=== PATIENT | male | born 1965 | race Caucasian/White ===

== ENCOUNTER 2025-03-26 12:44 | Inpatient (IN) | payer SELFPAY ==
[~2025-03-26] VITALS: Ht 182.9 cm; Wt 131.5 kg
[2025-03-26] MEDS ORDERED: KETOROLAC TROMETHAMINE 30 MG/ML VIAL IV STA (12:51)
[2025-03-26] MEDS ORDERED: ONDANSETRON HCL INJ 2MG/ML 2ML 2 MG/ML VIAL IV STA (12:51)
[2025-03-26] MEDS ORDERED: FENTANYL CITRATE/PF 100MCG/2 ML INJ IV ONE (13:00)
[2025-03-26 13:26] LABS: BASOPHILS % 0.3 % (0.0-1.0); EOSINOPHILS % 2.8 % (0.0-6.0); LYMPHOCYTES % 13.2 % (18.0-39.1); MONOCYTES % 6.0 % (4.4-11.3); NEUTROPHILS % 77.3 % (38.7-80.0); RED CELL DISTRIBUTION WIDTH 12.7 % (11.7-14.4)
[2025-03-26 13:53] LABS: EST GLOMERULAR FILTRATION RATE 90.0 ML/MIN (>=60)
[2025-03-26 14:15] LABS: LEUKOCYTE ESTERASE ,URINE NEGATIVE (NEGATIVE)
[2025-03-26 14:16] LABS: PROTEIN,URINE DIPSTICK 1+ (NEGATIVE); URINE UROBILINOGEN 0.2 mg/dL (0.2 - 1)
[2025-03-26 14:25] LABS: WBC,URINE (MAN) 0-5 /HPF (0-5)
[2025-03-26 14:42] VITALS: PULSE 74; RESP 18; O2SAT 99
[2025-03-26 15:35] VITALS: PULSE 65; RESP 18; TEMP 98.4
[2025-03-26] MEDS ORDERED: CLOPIDOGREL75 MG PO (15:47)
[2025-03-26] MEDS ORDERED: FLUOXETINE HCL20 MG PO (15:47)
[2025-03-26] MEDS ORDERED: ENTRESTO 24 MG1 EACH PO (15:47)
[2025-03-26] MEDS ORDERED: PANTOPRAZOLE SO40 MG PO (15:47)
[2025-03-26] MEDS ORDERED: ZOLPIDEM PO (15:47)
[2025-03-26] MEDS ORDERED: HYDROMORPHONE HC4 MG PO (15:47)
[2025-03-26] MEDS ORDERED: MONTELUKAST SOD10 MG PO (15:47)
[2025-03-26] MEDS ORDERED: ATORVASTATIN CA80 MG PO (15:47)
[2025-03-26] MEDS ORDERED: MELOXICAM15 MG PO (15:47)
[2025-03-26] MEDS ORDERED: FLOMAX0.4 MG PO (15:47)
[2025-03-26] MEDS ORDERED: HYDROCODON-ACE1 EA11 PO (15:47)
[2025-03-26] MEDS ORDERED: ASPIRIN81 MG PO (15:47)
[2025-03-26] MEDS ORDERED: CARVEDILOL25 MG PO (15:47)
[2025-03-26] MEDS ORDERED: OZEMPIC1 MG/0.71 SC (15:48)
[2025-03-26] MEDS: Morphine 4mg INJECTION 4 MG/ML INJ IV PRN (16:07)
[2025-03-26] MEDS: ONDANSETRON HCL INJ 2MG/ML 2ML 2 MG/ML VIAL IV PRN (16:07)
[2025-03-26 16:15] VITALS: BP_SYST 116; BP_SYST 131; BP_DIAS 63; BP_DIAS 75; PULSE 59; PULSE 74; RESP 18; RESP 20; TEMP 98.1; TEMP 98.4; O2SAT 95; O2SAT 97
[2025-03-26 16:16] VITALS: BP 116/75; PULSE 74; RESP 20; TEMP 98.1; O2SAT 97
[2025-03-26] MEDS: SODIUM CHLORIDE 0.9% 1000ML 1,000 ML IV SCH (19:48)
[2025-03-26 20:00] VITALS: BP 98/83; PULSE 59; RESP 18; TEMP 97.5; O2SAT 98
[2025-03-26] MEDS ORDERED: KETOROLAC TROMETHAMINE 30 MG/ML VIAL IV PRN (20:15)
[2025-03-26 21:00] VITALS: BP 98/83; PULSE 59; RESP 18; TEMP 97.5; O2SAT 98
[2025-03-27] VITALS (7 sets, daily range): BP systolic 136–158; BP diastolic 69–92; PULSE 54–65; RESP 18–19; TEMP 97.6–98.6; O2SAT 97–99
[2025-03-27 05:24] LABS: BASOPHILS % 0.3 % (0.0-1.0); EOSINOPHILS % 4.4 % (0.0-6.0); LYMPHOCYTES % 28.0 % (18.0-39.1); MONOCYTES % 9.7 % (4.4-11.3); NEUTROPHILS % 57.4 % (38.7-80.0); RED CELL DISTRIBUTION WIDTH 12.9 % (11.7-14.4)
[2025-03-27 05:54] LABS: EST GLOMERULAR FILTRATION RATE 97.0 ML/MIN (>=60)
[2025-03-27] MEDS ORDERED: HYDROCODONE/APAP 5MG-325MG TAB PO PRN (07:00)
[2025-03-27] MEDS ORDERED: HYDRALAZINE HCL 20 MG/ML VIAL IV PRN (07:00)
[2025-03-27] MEDS: CARVEDILOL 12.5 MG TAB PO SCH (08:57)
[2025-03-27] MEDS: FLUOXETINE HCL 20 MG CAP PO SCH (08:57)
[2025-03-27] MEDS: TAMSULOSIN HCL 0.4 MG CAP PO SCH (08:57)
[2025-03-27] MEDS: PANTOPRAZOLE SOD 40 MG TABEC PO SCH (08:58)
[2025-03-27] MEDS: MONTELUKAST SODIUM 10 MG TAB PO SCH (20:33)
[2025-03-27] MEDS: ATORVASTATIN 40 MG TAB PO SCH (20:33)
[2025-03-28 08:00] VITALS: BP 166/88; PULSE 56; RESP 19; TEMP 97.9; O2SAT 96
[2025-03-28 09:00] VITALS: BP 166/88; PULSE 56; RESP 19; TEMP 97.9; O2SAT 96
[2025-03-28 09:17] VITALS: BP 166/88; PULSE 56
== END 2025-03-28 10:50 | disposition home or self-care (01) | DRG 690 ==
LOC: ER 12:52 → ERHOLD 14:19 → MED/SURG 15:35
PROVIDERS: ADMIT Internal Medicine; ATTEND Internal Medicine
DX: N13.6 Pyonephrosis (principal); R31.9 Hematuria, unspecified; E78.5 Hyperlipidemia, unspecified; I25.10 Atherosclerotic heart disease of native coronary artery without angina pectoris; E66.9 Obesity, unspecified; E11.9 Type 2 diabetes mellitus without complications; K42.9 Umbilical hernia without obstruction or gangrene; Z87.442 Personal history of urinary calculi; Z79.84 Long term (current) use of oral hypoglycemic drugs; Z79.82 Long term (current) use of aspirin; Z79.02 Long term (current) use of antithrombotics/antiplatelets; Z79.891 Long term (current) use of opiate analgesic; Z98.61 Coronary angioplasty status; Z68.39 Body mass index [BMI] 39.0-39.9, adult
CPT/HCPCS: 36415; 74018; 74176; 80048; 80053; 81001; 82948; 85025; 87086; 94799; 99284; J0696; J2270; J2405; J2470; J7030